=== PATIENT | male | born 1995 | race Caucasian/White ===

== ENCOUNTER 2021-04-04 09:17 | Emergency (ER) | payer OTHER ==
[2021-04-04 09:30] VITALS: BP 131/74
--- NOTE | 2021-04-04 09:38 | ED Physician Documentation ---
PD HPI HEENT - Stated complaint Stated Complaint: THROAT PX - Chief complaint Chief Complaint: Heent - History obtained from History obtained from: Patient - Additional information Additional information: While brushing his teeth with a particularly soft toothbrush he felt like a bristle got lodged on the left side. No fevers or other URI symptoms. Review of Systems Constitutional: reports: Reviewed and negative Eyes: reports: Reviewed and negative Ears: reports: Reviewed and negative Nose: reports: Reviewed and negative PD PAST MEDICAL HISTORY - Allergies Allergies/Adverse Reactions: Allergies Allergy/AdvReac Type Severity Reaction Status Date / Time No Known Drug Allergies Allergy Verified 04/04/21 09:30 PD ED PE NORMAL - Vitals Vital signs reviewed: Yes - General General: Alert and oriented X 3, No acute distress - HEENT HEENT: Other (Oropharyngeal examination demonstrates cobblestoning posteriorly and very mild redness of the left tonsil without exudates or visible foreign body. Phonation is normal.) - Neuro Neuro: Alert and oriented X 3, Normal speech Results - Vitals Vitals: Vital Signs - 24 hr 04/04/21 09:27 Temperature 36.9 C Heart Rate 59 L Respiratory 15 Rate Blood Pressure 131/74 H O2 Saturation 100 Oxygen O2 Source Room air Departure - Departure Disposition: 01 Home, Self Care Clinical Impression: Foreign body sensation in throat Condition: Good Record reviewed to determine appropriate education?: Yes Instructions: ED Foreign Body Esophageal Rslv Comments: As discussed, I suspect the sensation will be gone within the next 24 to 48 hours. Return if not better in that timeframe or anytime if worsening.
== END 2021-04-04 09:45 | disposition home or self-care (01) ==
LOC: ED 09:17
DX: R09.89 Other specified symptoms and signs involving the circulatory and respiratory systems (principal)
CPT/HCPCS: 99281

== ENCOUNTER 2021-07-11 08:00 | Outpatient (CLI) | payer OTHER | END 2021-07-11 08:01 | disposition home or self-care (01) | LOC: LAB.N 08:00 | PROVIDERS: ATTEND Physician Assistant Medical | DX: R07.0 Pain in throat (principal); Z20.822 Contact with and (suspected) exposure to COVID-19 ==